=== PATIENT | male | born 1960 | race Caucasian/White ===

== ENCOUNTER 2021-10-20 07:35 | Day surgery (SDC) | payer MEDICARE ==
[~2021-10-20 07:35] MED LIST: Acetaminophen 325 MG Tab PO SCH; Lactated Ringers 1,000 ML IV SCH; Lidocaine 1%/Sod Bicarbonate in NS 8.4% 1 ML Syringe IDERM PRN; Morphine 8 MG, EPINEPHrine 0.3 MG, Cefuroxime 750 MG, Ketorolac 30 MG, Sodium Chloride ... PRN; Pregabalin 25 MG Cap PO SCH; Sodium Chloride 0.9% 10 ML Syringe FLUSH PRN; Sodium Chloride 0.9% 10 ML Syringe FLUSH SCH; oxyCODONE ER 10 MG TAB.ER PO SCH
[2021-10-20] MEDS ORDERED: Vancomycin 1 GM SDV ONE (07:45)
[2021-10-20] MEDS ORDERED: Ropivacaine 0.5% 5 MG/ML 30 ML SDV ONE (08:00)
[2021-10-20] MEDS ORDERED: EPINEPHrine 1 MG/ML SDV ONE (08:01)
[2021-10-20] MEDS ORDERED: Lidocaine 1% 4 ML ONE (08:02)
[2021-10-20] MEDS ORDERED: Propofol 200 MG/20 ML SDV ONE ×4 (08:02→09:51)
[2021-10-20] MEDS ORDERED: Midazolam 1 MG/ML 2 ML SDV ONE (08:03)
[2021-10-20] MEDS ORDERED: fentaNYL 100 MCG/2 ML SDV ONE (08:04)
[2021-10-20] MEDS ORDERED: ceFAZolin 2 GM Vial ONE (08:05)
[2021-10-20] MEDS ORDERED: ePHEDrine 50 MG/ML SDV ONE (08:37)
[2021-10-20] MEDS ORDERED: Ondansetron 4 MG/2 ML SDV ONE (08:46)
[2021-10-20] MEDS ORDERED: Lactated Ringers 1,000 ML ONE (08:58)
[2021-10-20] MEDS ORDERED: fentaNYL 100 MCG/2 ML SDV IVPUSH PRN (09:24)
[2021-10-20] MEDS ORDERED: diphenhydrAMINE 50 MG/ML SDV IVPUSH PRN (09:24)
[2021-10-20] MEDS ORDERED: Ondansetron 4 MG/2 ML SDV IVPUSH PRN (09:24)
[2021-10-20] MEDS ORDERED: Ketorolac 30 MG/ML SDV IM ONE (11:00)
[2021-10-20] MEDS ORDERED: oxyCODONE 5 MG Tab PO ONE (12:15)
== END 2021-10-20 13:40 | disposition home or self-care (01) ==
LOC: JD.SDS 07:35
PROVIDERS: ATTEND Orthopaedic Surgery
DX: M17.12 Unilateral primary osteoarthritis, left knee (principal); M54.50 Low back pain, unspecified; G89.29 Other chronic pain; G81.94 Hemiplegia, unspecified affecting left nondominant side; M19.90 Unspecified osteoarthritis, unspecified site; F17.200 Nicotine dependence, unspecified, uncomplicated; Z98.890 Other specified postprocedural states; Z79.899 Other long term (current) drug therapy; Z79.82 Long term (current) use of aspirin
CPT/HCPCS: 0055T; 27447; 36415; 73560; 85025; 97110; 97116; 97161; A9270; C1713; C1776; J0171; J0690; J0697; J1885; J2250; J2270; J2405; J2704; J2795; J3010; J3370; J7120; 01402; 64450; 76942